=== PATIENT | female | born 1960 | race Caucasian/White ===

== ENCOUNTER 2016-10-13 11:05 | Emergency (ER) | payer MEDICARE ==
[~2016-10-13] VITALS: Ht 165.1 cm; Wt 59.1 kg
[2016-10-13] MEDS ORDERED: SEROQUEL25 MG (11:18)
[2016-10-13] MEDS ORDERED: DIAZEPAM5 MG PO (11:18)
[2016-10-13] MEDS ORDERED: ACYCLOVIR200 MG (11:19)
[2016-10-13] MEDS ORDERED: HYDROCO/APAP1 TA9 PO (12:03)
[2016-10-13] MEDS ORDERED: MOTRIN400 MG PO (12:03)
[2016-10-13 12:15] VITALS: BP 214/95
== END 2016-10-13 12:26 | disposition home or self-care (01) ==
LOC: ED 11:05
DX: S92.425A Nondisplaced fracture of distal phalanx of left great toe, initial encounter for closed fracture (principal); W22.8XXA Striking against or struck by other objects, initial encounter; Y93.89 Activity, other specified; Y92.89 Other specified places as the place of occurrence of the external cause